=== PATIENT | male | born 1930 | race African-American/Black ===

== ENCOUNTER 2016-11-16 13:42 | Observation (INO) | payer MEDICARE, OTHER ==
[~2016-11-16] VITALS: Ht 190.5 cm; Wt 84.0 kg
[2016-11-16] VITALS (12 sets, daily range): BP systolic 144–239; BP diastolic 73–109; PULSE 64–80; RESP 16–20; TEMP 97.8–97.9; O2SAT 98–100
--- NOTE | 2016-11-16 13:58 | PD ---
Physical Exam Narrative Pt is an 86 year old male presenting to the Ed with CC of feeling shaky, dizzy, felt as if he was going to pass out. No hx of hypertension but BP markedly elevated this morning at PCP and was sent to ED for evaluation. He felt as if his hands and feet were numb. No CP or SOB. BP reassessed at 186/90. Protocol initiated. Nephew with patient. Data Data Last Documented VS Vital Signs Date Time Temp Pulse Resp B/P Pulse Ox O2 Delivery O2 Flow Rate FiO2 11/16/16 13:50 16 186/90 11/16/16 13:44 97.8 64 99 Room Air MDM Supervised Visit with PETER: Yes Scripts No Active Prescriptions or Reported Meds Lakesha Westbrook Nov 16, 2016 13:58
[2016-11-16 14:23] LABS: AUTOMATED NEUTROPHIL # 5.9 TH/MM3 (1.8-7.7); BASOPHIL % 0.4 % (0.0-2.0); EOSINOPHIL # 0.1 TH/MM3 (0-0.4); EOSINOPHIL % 0.8 % (0.0-4.0); HEMATOCRIT 43.5 % (39.0-51.0); HEMO FLAGS DIFF FINAL; LYMPHOCYTE # 1.6 TH/MM3 (1.0-4.8); MEAN CELL VOLUME 85.1 FL (80.0-100.0); MEAN CORPUSCULAR HEMOGLOBIN 27.2 PG (27.0-34.0); MEAN CORPUSCULAR HGB CONC 31.9 % (32.0-36.0); MONO % 5.6 % (0.0-8.0); NEUT % 73.2 % (16.0-70.0); PLATELET COUNT 183 TH/MM3 (150-450); RED BLOOD COUNT 5.11 MIL/MM3 (4.50-5.90); RED CELL DISTRIBUTION WIDTH 12.7 % (11.6-17.2); WHITE BLOOD COUNT 8.1 TH/MM3 (4.0-11.0)
[2016-11-16 14:34] LABS: APTT (PATIENT) 28.1 SEC (24.3-30.1); PROTHROMBIN TIME - PATIENT 10.7 SEC (9.8-11.6)
[2016-11-16 14:41] LABS: ANION GAP 4 MEQ/L (5-15); BICARBONATE 27.9 MEQ/L (21.0-32.0); BLOOD UREA NITROGEN 16 MG/DL (7-18); CHLORIDE 106 MEQ/L (98-107); GLOMERULAR FILTRATION RATE 77 ML/MIN (>89); MAGNESIUM 2.1 MG/DL (1.5-2.5); SODIUM (NA) 138 MEQ/L (136-145)
--- NOTE | 2016-11-16 14:46 | RADRPT ---
EXAM DATE/TIME: 11/16/2016 14:32 [facility] COMPARISON: No previous studies available for comparison. INDICATIONS : Miroslava blood pressure. Patient was sent to the emergency room from his primary doctor. MEDICAL HISTORY : Hypertension. SURGICAL HISTORY : None. ENCOUNTER: Initial ACUITY: 1 day PAIN SCORE: 0/10 LOCATION: Bilateral chest FINDINGS: PA and lateral views of the chest demonstrate the lungs to be symmetrically aerated without evidence of mass, infiltrate or effusion. The cardiomediastinal contours are unremarkable. Osseous structure s are intact. CONCLUSION: No acute disease. Jc Webster MD FACR on November 16, 2016 at 14:44 Board Certified Radiologist. This report was verified electronically.
[2016-11-16 15:04] LABS: CREATINE KINASE 90 U/L (39-308)
[2016-11-16] MEDS ORDERED: hydrALAZINE HCL 20 MG/ML VIAL IV PUSH ONE (15:15)
--- NOTE | 2016-11-16 15:49 | RADRPT ---
EXAM DATE/TIME: 11/16/2016 15:11 [facility] COMPARISON: No previous studies available for comparison. INDICATIONS : Right sided numbness , slurred speech x 3 hours RADIATION DOSE: 45.91 CTDIvol (mGy) MEDICAL HISTORY : Diabetes mellitus type 1. Cardiovascular disease Hypertension. SURGICAL HISTORY : None. ENCOUNTER: Initial ACUITY: 1 day PAIN SCALE: 2/10 LOCATION: Bilateral cranial TECHNIQUE: Multiple contiguous axial images were obtained of the head. Using automated exposure control and adj ustment of the mA and/or kV according to patient size, radiation dose was kept as low as reasonably a chievable to obtain optimal diagnostic quality images. FINDINGS: CEREBRUM: The ventricles are normal for age. Left lateral ventricle slightly larger than the right; there is a lso a small lacunar infarct in the region of the body of the caudate on the left. No evidence of mid line shift, mass lesion, hemorrhage or acute infarction. No extra-axial fluid collections are seen. POSTERIOR FOSSA: The cerebellum and brainstem are intact. The 4th ventricle is midline. The cerebellopontine angle i s unremarkable. EXTRACRANIAL: The visualized portion of the orbits is intact. SKULL: The calvaria is intact. No evidence of skull fracture. CONCLUSION: 1. No evidence of acute infarction by CT. 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 2. Given the acute symptoms and lack of CT findings, may consider performing noncontrast MRI to inclu de diffusion-weighted images. Mandeep Falcon MD on November 16, 2016 at 15:45 Board Certified Radiologist. This report was verified electronically.
--- NOTE | 2016-11-16 16:19 | PD ---
HPI Chief Complaint: Hypertension Time Seen by Provider: 15:05 Travel History International Travel<30 days: No Contact w/Intl Traveler<30days: No Traveled to known affect area: No History of Present Illness HPI 86yo M with PMH of HTN not on any medication presents to the ED with c/o not feeling well today. Pt feels lightheaded and went to PMD and found to have elevated blood pressure. Pt was sent to the ED for further evaluation. Pt was initially seen by midlevel provider in triage and had the work up started. Pt returned from xray and nephew stated that he had slurred speech as well as numbness in right arm and leg. Last normal was at 2:45pm. Pt was then transferred to a medical bed and when I saw him, his numbness in his right arm and leg was resolving. Speech has also improved. Pt did have a left facial droop and left facial numbness at the time I saw him. Denies any fever, headache, visual changes, chest pain, sob, vomiting, abdominal pain. Pt is not on any medications and does not see doctor often. PFSH Past Medical History Medical History: Denies Significant Hx Diabetes: No ?: Not Past Surgical History Surgical History: No Previous Surgery Social History Alcohol Use: No Tobacco Use: No Substance Use: No Allergies-Medications (Allergen,Severity, Reaction): Coded Allergies: No Known Allergies (Unverified , 11/03/13) Reported Meds & Prescriptions Reported Meds & Active Scripts Active No Active Prescriptions or Reported Medications Review of Systems Except as stated in HPI: all other systems reviewed are Neg Physical Exam Narrative GENERAL: 86yo M not in distress. SKIN: Focused skin assessment warm/dry. HEAD: Atraumatic. Normocephalic. EYES: Pupils equal and round. EOMI. No scleral icterus. No injection or drainage. ENT: No nasal bleeding or discharge. Mucous membranes pink and moist. NECK: Trachea midline. No JVD. CARDIOVASCULAR: Regular rate and rhythm. No murmur appreciated. RESPIRATORY: No accessory muscle use. Clear to auscultation. Breath sounds equal bilaterally. GASTROINTESTINAL: Abdomen soft, non-tender, nondistended. MUSCULOSKELETAL: No obvious deformities. No clubbing. No cyanosis. No edema. NEUROLOGICAL: Awake and alert. Decreased sensation left face V1-V3. Slight left facial droop. NIH 2. PSYCHIATRIC: Appropriate mood and affect; insight and judgment normal. Data Data Last Documented VS Vital Signs Date Time Temp Pulse Resp B/P Pulse Ox O2 Delivery O2 Flow Rate FiO2 11/16/16 16:20 69 18 187/73 Room Air 11/16/16 15:45 100 11/16/16 13:44 97.8 Orders Electrocardiogram (11/16/16 13:58) Basic Metabolic Panel (Bmp) (11/16/16 13:58) Ckmb (Isoenzyme) Profile (11/16/16 13:58) Complete Blood Count With Diff (11/16/16 13:58) Magnesium (Mg) (11/16/16 13:58) Prothrombin Time / Inr (Pt) (11/16/16 13:58) Act Partial Throm Time (Ptt) (11/16/16 13:58) Troponin I (11/16/16 13:58) Chest, Pa & Lat (11/16/16 13:58) Ct Brain W/O Iv Contrast(Rout) (11/16/16 ) Hydralazine Inj (Apresoline Inj) (11/16/16 15:15) Admit Order (Ed Use Only) (11/16/16 16:25) Vitamin B12 (11/16/16 14:05) Folate, Serum (11/16/16 14:05) Free Thyroxine (T4) (11/16/16 14:05) Thyroid Stimulating Hormone (11/16/16 14:05) Labs Laboratory Tests Test 11/16/16 14:05 White Blood Count 8.1 TH/MM3 Red Blood Count 5.11 MIL/MM3 Hemoglobin 13.9 GM/DL Hematocrit 43.5 % Mean Corpuscular Volume 85.1 FL Mean Corpuscular Hemoglobin 27.2 PG Mean Corpuscular Hemoglobin 31.9 % Concent Red Cell Distribution Width 12.7 % Platelet Count 183 TH/MM3 Mean Platelet Volume 8.1 FL Neutrophils (%) (Auto) 73.2 % Lymphocytes (%) (Auto) 20.0 % Monocytes (%) (Auto) 5.6 % Eosinophils (%) (Auto) 0.8 % Basophils (%) (Auto) 0.4 % Neutrophils # (Auto) 5.9 TH/MM3 Lymphocytes # (Auto) 1.6 TH/MM3 Monocytes # (Auto) 0.5 TH/MM3 Eosinophils # (Auto) 0.1 TH/MM3 Basophils # (Auto) 0.0 TH/MM3 CBC Comment DIFF FINAL Differential Comment Prothrombin Time 10.7 SEC Prothromb Time International 1.0 RATIO Ratio Activated Partial 28.1 SEC Thromboplast Time Sodium Level 138 MEQ/L Potassium Level 4.0 MEQ/L Chloride Level 106 MEQ/L Carbon Dioxide Level 27.9 MEQ/L Anion Gap 4 MEQ/L Blood Urea Nitrogen 16 MG/DL Creatinine 1.10 MG/DL Estimat Glomerular Filtration 77 ML/MIN Rate Random Glucose 103 MG/DL Calcium Level 9.1 MG/DL Magnesium Level 2.1 MG/DL Total Creatine Kinase 90 U/L Troponin I LESS THAN 0.02 NG/ML Vitamin B12 Level 360 PG/ML Folate 9.7 NG/ML Free Thyroxine 1.31 NG/DL Thyroid Stimulating Hormone 2.300 uIU/ML [facility] Medical Decision Making Medical Screen Exam Complete: Yes Emergency Medical Condition: Yes Interpretation(s) EKG: NSR 74bpm. Normal axis. No ST segment elevation or depression. Laboratory Tests Test 11/16/16 14:05 White Blood Count 8.1 TH/MM3 (4.0-11.0) Red Blood Count 5.11 MIL/MM3 (4.50-5.90) Hemoglobin 13.9 GM/DL (13.0-17.0) Hematocrit 43.5 % (39.0-51.0) Mean Corpuscular Volume 85.1 FL (80.0-100.0) Mean Corpuscular Hemoglobin 27.2 PG (27.0-34.0) Mean Corpuscular Hemoglobin 31.9 % Concent (32.0-36.0) Red Cell Distribution Width 12.7 % (11.6-17.2) Platelet Count 183 TH/MM3 (150-450) Mean Platelet Volume 8.1 FL (7.0-11.0) Neutrophils (%) (Auto) 73.2 % (16.0-70.0) Lymphocytes (%) (Auto) 20.0 % (9.0-44.0) Monocytes (%) (Auto) 5.6 % (0.0-8.0) Eosinophils (%) (Auto) 0.8 % (0.0-4.0) Basophils (%) (Auto) 0.4 % (0.0-2.0) Neutrophils # (Auto) 5.9 TH/MM3 (1.8-7.7) Lymphocytes # (Auto) 1.6 TH/MM3 (1.0-4.8) Monocytes # (Auto) 0.5 TH/MM3 (0-0.9) Eosinophils # (Auto) 0.1 TH/MM3 (0-0.4) Basophils # (Auto) 0.0 TH/MM3 (0-0.2) CBC Comment DIFF FINAL Differential Comment Prothrombin Time 10.7 SEC (9.8-11.6) Prothromb Time International 1.0 RATIO Ratio Activated Partial 28.1 SEC Thromboplast Time (24.3-30.1) Sodium Level 138 MEQ/L (136-145) Potassium Level 4.0 MEQ/L (3.5-5.1) Chloride Level 106 MEQ/L (98-107) Carbon Dioxide Level 27.9 MEQ/L (21.0-32.0) Anion Gap 4 MEQ/L (5-15) Blood Urea Nitrogen 16 MG/DL (7-18) Creatinine 1.10 MG/DL (0.60-1.30) Estimat Glomerular Filtration 77 ML/MIN (>89) Rate Random Glucose 103 MG/DL (74-106) Calcium Level 9.1 MG/DL (8.5-10.1) Magnesium Level 2.1 MG/DL (1.5-2.5) Total Creatine Kinase 90 U/L (39-308) Troponin I LESS THAN 0.02 NG/ML (0.02-0.05) Last Impressions Chest X-Ray 11/16/16 1358 Signed Impressions: Service Date/Time: Wednesday, November 16, 2016 14:32 - CONCLUSION: No acute disease. Jc Webster MD FACR Head CT 11/16/16 0000 Signed Impressions: Service Date/Time: Wednesday, November 16, 2016 15:11 - CONCLUSION: 1. No evidence of acute infarction by CT. 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 2. Given the acute symptoms and lack of CT findings, may consider performing noncontrast MRI to include diffusion-weighted images. Mandeep Falcon MD Differential Diagnosis CVA vs. hypertensive emergency vs. ICH Narrative Course 86yo M with elevated blood pressure with new onset slurred speech and numbness. Symptoms are resolving on their own. Labs reviewed, no leukocytosis. Troponin negative. CXR negative. CT brain showed no evidence of acute infarct. 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 Pt given hydralazine 10mg IV and BP has improved to 187/73. Pt reevaluated at bedside and all symptoms has resolved. Given pt's acute symptoms, will admit for TIA although hypertensive emergency may be in the differential. Pt took aspirin today. Discussed with Dr. Guallpa and accepted for observation for TIA. Diagnosis Primary Impression: TIA (transient ischemic attack) Qualified Code: G45.9 - Transient cerebral ischemia, unspecified type Admitting Information Admitting Physician Requests: Observation Scripts No Active Prescriptions or Reported Meds Nadege Sales DO Nov 16, 2016 16:19
[2016-11-16] MEDS ORDERED: LABETALOL HCL 100 MG/20 ML VIAL IV PRN (16:30)
[2016-11-16] MEDS ORDERED: SODIUM CHLORIDE 0.9% FLUSH 10 ML FLUSH IV FLUSH PRN (16:30)
[2016-11-16] MEDS ORDERED: GLUCAGON 1 MG/ML VIAL IM/SQ PRN (16:30)
[2016-11-16] MEDS ORDERED: DEXTROSE 50% IN WATER 50 ML VIAL(D50) IV PUSH PRN (16:30)
--- NOTE | 2016-11-16 16:45 | HHI.HP ---
[facility] Service [facility] ([place], [place])ists Primary Care Physician Yariel Brower MD Admission Diagnosis TIA Diagnoses: Chief Complaint: Right arm and leg tingling sensation and numbness, difficulty to walk. Travel History International Travel<30 Days: No Contact w/Intl Traveler <30 Da: No Traveled to Known Affected Are: No History of Present Illness This is a pleasant 86 y/o Male with Hypertension, non on any medicine, who complaint today of not feeling well, he felt lightheaded found in Emergency room with Accelerated Hypertension, Pt was initially seen by midlevel provider in triage and had the work up started. Pt returned from xray and nephew stated that he had slurred speech as well as numbness in right arm and leg. Last normal was at 2:45pm. seen by Emergency medicine physician with numbness in his right arm and leg that was resolving, Speech also was improving, Pt did have a left facial droop and left facial numbness, Denies any fever, headache, visual changes, chest pain, sob, vomiting, abdominal pain. Pt is not on any medications and does not see doctor often. patient seen in emergency room, in the presence of fisheries technician doing his Carotid ultrasound he states he had Right arm and leg tingling sensation, numbness and slurred speech at this moment totally asymptomatic, full Stroke workup will be performed included Neurology specialist consult. Past Family Social History Past Medical History Hypertension not taking any medicine Past Surgical History No previous surgical history Reported Medications Reported Meds & Active Scripts Active No Active Prescriptions or Reported Medications Allergies: Coded Allergies: No Known Allergies (Unverified , 11/03/13) Active Ordered Medications Current Medications Medications (Trade) Dose Ordered Sig/Zahra Route Start Time Stop Time Status Last Admin (NS Flush) 2 ml BID IV FLUSH 11/16/16 21:00 UNV Sodium Chloride 2 ml 2 ml UNSCH PRN IV FLUSH 11/16/16 16:30 UNV (NS 1000 ml Inj) 1,000 ml @ 70 mls/hr [id number] IV 11/16/16 16:26 UNV (Trandate Inj) 10 mg Q2H PRN IV 11/16/16 16:30 UNV (Aspirin) 325 mg DAILY PO 11/17/16 09:00 (D50w (Vial) Inj) 25 ml UNSCH PRN IV PUSH 11/16/16 16:30 (Glucagon Inj) 1 mg UNSCH PRN IM/SQ 11/16/16 16:30 (Lovenox Inj) 40 mg Q24H SQ 11/16/16 17:00 Family History asked and states his father when he was eight months old and his mother lived until 87 years old Social History Lives alone and Denies any Toxic habit. Physical Exam Vital Signs Vital Signs Date Time Temp Pulse Resp B/P Pulse Ox O2 Delivery O2 Flow Rate FiO2 11/16/16 16:20 69 18 187/73 Room Air 11/16/16 15:45 80 18 188/90 100 Room Air 11/16/16 15:30 65 20 187/86 99 Room Air 11/16/16 14:59 77 20 239/107 99 Room Air 11/16/16 14:56 99 Room Air 11/16/16 13:50 16 186/90 11/16/16 13:44 97.8 64 20 231/109 99 Room Air Physical Exam GENERAL: Not in distress. SKIN: Focused skin assessment warm/dry. HEAD: Atraumatic. Normocephalic. EYES: Pupils equal and round. EOMI. No scleral icterus. No injection or drainage. ENT: No nasal bleeding or discharge. Mucous membranes pink and moist. NECK: Trachea midline. No JVD. CARDIOVASCULAR: Regular rate and rhythm. No murmur appreciated. RESPIRATORY: No accessory muscle use. Clear to auscultation. Breath sounds equal bilaterally. GASTROINTESTINAL: Abdomen soft, non-tender, nondistended. MUSCULOSKELETAL: No obvious deformities. No clubbing. No cyanosis. No edema. NEUROLOGICAL: Awake and alert. No focal deficits. PSYCHIATRIC: Appropriate mood and affect; insight and judgment normal. Laboratory Laboratory Tests Test 11/16/16 14:05 White Blood Count 8.1 Red Blood Count 5.11 Hemoglobin 13.9 Hematocrit 43.5 Mean Corpuscular Volume 85.1 Mean Corpuscular Hemoglobin 27.2 Mean Corpuscular Hemoglobin 31.9 Concent Red Cell Distribution Width 12.7 Platelet Count 183 Mean Platelet Volume 8.1 Neutrophils (%) (Auto) 73.2 Lymphocytes (%) (Auto) 20.0 Monocytes (%) (Auto) 5.6 Eosinophils (%) (Auto) 0.8 Basophils (%) (Auto) 0.4 Neutrophils # (Auto) 5.9 Lymphocytes # (Auto) 1.6 Monocytes # (Auto) 0.5 Eosinophils # (Auto) 0.1 Basophils # (Auto) 0.0 CBC Comment DIFF FINAL Differential Comment Prothrombin Time 10.7 Prothromb Time International 1.0 Ratio Activated Partial 28.1 Thromboplast Time Sodium Level 138 Potassium Level 4.0 Chloride Level 106 Carbon Dioxide Level 27.9 Anion Gap 4 Blood Urea Nitrogen 16 Creatinine 1.10 Estimat Glomerular Filtration 77 Rate Random Glucose 103 Calcium Level 9.1 Magnesium Level 2.1 Total Creatine Kinase 90 Troponin I LESS THAN 0.02 Result Diagram: 11/16/16 1405 11/16/16 1405 Imaging Last Impressions Chest X-Ray 11/16/16 1358 Signed Impressions: Service Date/Time: Wednesday, November 16, 2016 14:32 - CONCLUSION: No acute disease. Jc Webster MD FACR Head CT 11/16/16 0000 Signed Impressions: Service Date/Time: Wednesday, November 16, 2016 15:11 - CONCLUSION: 1. No evidence of acute infarction by CT. 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 2. Given the acute symptoms and lack of CT findings, may consider performing noncontrast MRI to include diffusion-weighted images. Mandeep Falcon MD Assessment and Plan Assessment and Plan 1. Acute Ischemic Stroke versus TIA, started on Oxygen as needed, Aspirin 325 mg Cardiac monitoring, Cardiac enzymes, Neurology specialist consult, CT probable old infarct MRI brain, MRA brain, Carotid ultrasound, Echocardiogram, complete laboratory TSH, Free T4, Lipid Profile, Hemoglobin A1C, PT, OT and Speech therapy at this time NPO continue IV fluids, 2. Accelerated Hypertension, Permissive Hypertension Discussed with Emergency medicine Specialist doctor Nadege Sales DVT prophylaxis Lovenox. Code Status Full code. Discussed Condition With Patient and ER specialist. Physician Certification 2 Midnight Certification Type: Admission for Inpatient Services Order for Inpatient Services The services are ordered in accordance with Medicare regulations or non- Medicare payer requirements, as applicable. In the case of services not specified as inpatient-only, they are appropriately provided as inpatient services in accordance with the 2-midnight benchmark. Estimated LOS (days): 3 days is the estimated time the patient will need to remain in the hospital, assuming treatment plan goals are met and no additional complications. Post-Hospital Plan: Home Galen Rich MD Nov 16, 2016 16:45
[2016-11-16] MEDS ORDERED: ENALAPRILAT 1.25 MG/ML VIAL IV PRN (17:00)
[2016-11-16] MEDS ORDERED: ENOXAPARIN SODIUM 40 MG/0.4 ML SYRINGE SQ SCH (17:00)
--- NOTE | 2016-11-16 17:48 | RADRPT ---
EXAM DATE/TIME: 11/16/2016 16:47 [facility] COMPARISON: No previous studies available for comparison. INDICATIONS : Cerebrovascular Accident. Left facial droop and numbness. MEDICAL HISTORY : Hypertension. Left facial droop and numbness. CVA. SURGICAL HISTORY : None. ENCOUNTER: Initial ACUITY: 1 day PAIN SCORE: 0/10 LOCATION: Bilateral neck PEAK SYSTOLIC VELOCITIES (cm/sec): ICA/CCA RATIO: Right: 0.8 Left: 0.6 ICA: Right: 82 Left: 79 CCA: Right: 102 Left: 140 ECA: Right: 110 Left: 138 VERTEBRAL: Right: 59 antegrade Left: 72 antegrade Elevated flow velocities and ICA/CCA ratios have been found to correlate with increased degrees of vessel stenosis, calculated as percentage of diameter relative to a normal segment of distal ICA/CCA FINDINGS: RIGHT CAROTID: No significant stenosis is visualized. The waveforms are within normal limits. LEFT CAROTID: No significant stenosis is visualized. The waveforms are within normal limits. VERTEBRAL ARTERIES: Antegrade flow is seen in both vertebral arteries. CONCLUSION: 1. Normal hemodynamic profile on the right. 2. Elevated peak systolic velocity in the common carotid artery without widening of velocity spectrum or elevated ICA velocity on the left side. This is suggestive to 50% stenosis. Mandeep Falcon MD on November 16, 2016 at 17:44 Board Certified Radiologist. This report was verified electronically.
[2016-11-16] MEDS ORDERED: ASPIRIN 325 MG TAB PO ONE (18:00)
--- NOTE | 2016-11-16 18:44 | RADRPT ---
EXAM DATE/TIME: 11/16/2016 18:01 [facility] COMPARISON: MRI BRAIN W/O CONTRAST, November 16, 2016, 18:01. INDICATIONS : Right sided weakness. CVA. MEDICAL HISTORY : Hypertension. SURGICAL HISTORY : None. ENCOUNTER: Subsequent ACUITY: 1 day PAIN SCORE: 0/10 LOCATION: HEAD. Please note a normal MRA of the brain does not entirely exclude the possibility of a small aneurysm, nor the possibility of distal intracranial vessel disease. TECHNIQUE: 3D time of flight MRA was performed. Source images, multiplanar STS MIP, and 3D volume MIP reconstru ctions were reviewed. FINDINGS: There is excellent visualization of the major intracranial arteries out to the second-order branch ve ssels. Atherosclerotic narrowing is seen involving the proximal M2 branches on the right. The remaini ng vessels are patent. There is no evidence for aneurysm or vascular malformation. CONCLUSION: Atherosclerotic narrowing of the proximal M2 branches on the right. Otherwise, no acute abnormality. Mandeep Toussaint Jr., MD on November 16, 2016 at 18:38 Board Certified Radiologist. This report was verified electronically.
--- NOTE | 2016-11-16 18:46 | RADRPT ---
EXAM DATE/TIME: 11/16/2016 18:01 [facility] COMPARISON: CT BRAIN W/O CONTRAST, November 16, 2016, 15:11. INDICATIONS : Right sided weakness. CVA. MEDICAL HISTORY : Hypertension. SURGICAL HISTORY : None. ENCOUNTER: Subsequent ACUITY: 1 day PAIN SCORE: 0/10 LOCATION: head. TECHNIQUE: Multiplanar, multisequence MRI of the brain was performed without contrast. FINDINGS: CEREBRUM: The ventricles are normal for age. No evidence of midline shift, mass lesion, hemorrhage or acute in farction. No extraaxial fluid collections are seen. The pituitary gland and suprasellar cistern are normal in configuration. WHITE MATTER: Scattered foci of high T2 signal abnormality involving the periventricular white matter of both cereb ral hemispheres. POSTERIOR FOSSA: The cerebellum and brainstem are intact. The 4th ventricle is midline. The cerebellopontine angle is unremarkable. The cerebellar tonsils are normal in position. DIFFUSION IMAGING: No focal areas of restricted diffusion are seen. No evidence of acute infarction. EXTRACRANIAL: The visualized portions of the orbits and paranasal sinuses are unremarkable. Note is made of complet e opacification of the left maxillary sinus. CONCLUSION: 1. No acute intracranial abnormality. 2. Chronic small vessel ischemic change. 3. Left maxillary sinus disease. Mandeep Toussaint Jr., MD on November 16, 2016 at 18:42 Board Certified Radiologist. This report was verified electronically.
[2016-11-16 19:14] LABS: FREE T4 1.31 NG/DL (0.76-1.46)
[2016-11-16] MEDS: SODIUM CHLOR 0.9% 1000 ML INJ 1,000 ML IV SCH (19:37)
[2016-11-16] MEDS: SODIUM CHLORIDE 0.9% FLUSH 10 ML FLUSH IV FLUSH SCH (20:55)
[2016-11-16] MEDS: INSULIN ASPART SUPPLEMENTAL SCALE SQ SCH (21:00)
--- NOTE | 2016-11-16 21:03 | EC ---
Study Study Date:11/16/2016 STUDY CONCLUSIONS SUMMARY LEFT VENTRICLE: The cavity size was normal. Wall thickness was normal. Systolic function was normal. The estimated ejection fraction was 65%. Wall motion was normal; there were no regional wall motion abnormalities. If LV function is below 40, please consider prescribing an ACEI or ARB or document rationale for non-use. PROCEDURE DATA STUDY STATUS: Elective. Procedure: Transthoracic echocardiography. Image quality was good. Scanning was performed from the parasternal, apical, and subcostal acoustic windows. Study completion: The patient tolerated the procedure well. Transthoracic echocardiography. M-mode, complete 2D, complete spectral Doppler, and color Doppler. Height: Height: 75in. Weight: Weight: 184.6lb. Body mass index: BMI: 23.1kg/m^2. Body surface area: BSA: 2.12m^2. Patient status: Inpatient. CARDIAC ANATOMY LEFT VENTRICLE: The cavity size was normal. Wall thickness was normal. Systolic function was normal. The estimated ejection fraction was 65%. Wall motion was normal; there were no regional wall motion abnormalities. AORTIC VALVE: Trileaflet; normal thickness leaflets. Doppler: Transvalvular velocity was within the normal range. There was no stenosis. No regurgitation. Valve area: 2.29cm^2 (Vmax). Indexed valve area: 1.08cm^2/m^2 (Vmax). AORTA: Aortic root: The aortic root was normal in size. MITRAL VALVE: Structurally normal valve. Doppler: Transvalvular velocity was within the normal range. There was no evidence for stenosis. No regurgitation. Mean gradient: 2mm Hg (D). Peak gradient: 4mm Hg (D). LEFT ATRIUM: The atrium was normal in size. RIGHT VENTRICLE: The cavity size was normal. Wall thickness was normal. PULMONIC VALVE: Doppler: Transvalvular velocity was within the normal range. There was no evidence for stenosis. No regurgitation. TRICUSPID VALVE: Structurally normal valve. Doppler: Transvalvular velocity was within the normal range. No regurgitation. PULMONARY ARTERY: The main pulmonary artery was normal-sized. Systolic pressure was within the normal range. RIGHT ATRIUM: The atrium was normal in size. PERICARDIUM: There was no pericardial effusion. SYSTEMIC VEINS: Inferior vena cava: The vessel was normal in size. Patient weight: 184.6lb _Ejection fraction:_ 65-75% _Fractional shortening:_ 32% up to 5Kg 5-11.5Kg 11.6-22.9Kg 23-45Kg 45-57Kg Aortic Root 7-13 <17 13-22 17-27 17-27 LA diam 6-13 <23 24-38 33-47 37-40 RVID 10-17 7-15 7-15 7-18 8-17 LVIDd 12-22 <32 24-38 33-47 37-40 LVPW 2-4 3-6 5-7 6-8 7-8 IVS 2-4 3-6 5-7 6-8 7-8 BASIC MEASUREMENTS ADULT NORMAL Aortic valve Leaflet separation 19 mm 15-26 Left atrium Anterior-posterior dimension 30 mm Anterior-posterior dimension index 1.42 cm/m^2 <2.2 Right ventricle RV internal dimension, ED, PLAX 27.6 mm 19-38 BASIC MEASUREMENTS ADULT NORMAL Left ventricle LV internal dimension, ED 47.6 mm 37-56 LV internal dimension, ES 24.3 mm Fractional shortening *49 % 29-45 LV posterior wall, ED 9.31 mm 6-11 Septal/posterior wall ratio, ED 1 Relative wall thickness, ED 0.39 <0.45 Volume, ED, Teichholz 105 ml Volume, ES, Teichholz 20.8 ml Ejection fraction, Teichholz 80.2 % 64-83 Stroke volume, Teichholz 84.2 ml Volume index, ED, Teichholz 50 ml/m^2 Volume index, ES, Teichholz 10 ml/m^2 Stroke index, Teichholz 39.7 ml/m^2 Wall mass 152.5 g Wall mass index 71.9 g/m^2 Mass/height 0.8 g/cm Ventricular septum Septal thickness, ED 9.31 mm Aortic valve Leaflet separation 19 mm 15-26 Aorta Root diameter, ED 25 mm 20-37 DOPPLER MEASUREMENTS ADULT NORMAL Aortic valve Peak velocity, S 140 cm/s VTI, S 31.7 cm Valve area, Vmax 2.29 cm^2 Valve area index, Vmax 1.08 cm^2/m^2 Mitral valve Mean velocity, D 62.1 cm/s Mean gradient, D 2 mm Hg Peak gradient, D 4 mm Hg Pulmonic valve Peak velocity, S 119 cm/s LEGEND: Mean values are shown as u=mean value. Asterisk (*) cabrales values outside specified normal range. Prepared and signed by Malina Byrne [id number]
[2016-11-17 00:54] VITALS: BP 172/76; PULSE 72; RESP 16
[2016-11-17 04:51] VITALS: BP 160/76; PULSE 61; RESP 18; TEMP 97.8; O2SAT 97
[2016-11-17 05:22] LABS: HDL CHOLESTEROL 44.8 MG/DL (40.0-60.0)
[2016-11-17] MEDS: INSULIN ASPART SUPPLEMENTAL SCALE SQ SCH ×2 (06:10→11:00)
[2016-11-17 07:51] VITALS: BP 134/95; PULSE 68; RESP 18; TEMP 97.4; O2SAT 98
[2016-11-17 08:04] VITALS: PULSE 75
[2016-11-17] MEDS: SODIUM CHLOR 0.9% 1000 ML INJ 1,000 ML IV SCH (08:04)
[2016-11-17] MEDS: SODIUM CHLORIDE 0.9% FLUSH 10 ML FLUSH IV FLUSH SCH (08:06)
[2016-11-17] MEDS ORDERED: ASPIRIN 325 MG TAB PO SCH (09:00)
--- NOTE | 2016-11-17 09:51 | MB ---
cc: JUAN BOCANEGRA MD DATE OF CONSULTATION: 11/17/2016 REASON FOR CONSULTATION Possible TIA. HISTORY OF PRESENT ILLNESS Mr. Lynch is a 86-year-old -Al[place] male with history of hypertension. He is not on any medications, who presented to the ED feeling numbness of the whole right side, face, arm and leg with feeling of dizziness and he states it "comes and goes" and it lasted a few hours and then totally resolved. He states that he had a similar condition 2 years ago and this time this is associated with mild slurring of speech as well. He denies headache, double vision, blurred vision, weakness of extremity, fall or disorientation. REVIEW OF SYSTEMS A 12-point review of systems is negative except for what is stated in the HPI. PAST MEDICAL HISTORY Hypertension, not on any medication. PAST SURGICAL HISTORY No previous surgical history. MEDICATIONS Currently on no medications. ALLERGIES No known allergies. FAMILY HISTORY Father when he was 8 months. Mother lived until 87 years old. SOCIAL HISTORY Lives alone, independent. Denies alcohol, illicit drug abuse or cigarette smoking. PHYSICAL EXAMINATION GENERAL: Awake, alert, good historian, pleasant, not in acute distress. HEENT: Atraumatic, normocephalic. Intact vision and intact hearing. NECK: Trachea in the midline. No carotid bruits. CARDIOVASCULAR: Regular rate and rhythm. RESPIRATORY: Clear to auscultation. No wheezes. GASTROINTESTINAL: Soft abdomen, nontender. MUSCULOSKELETAL: No obvious deformity. No clubbing, no cyanosis, no edema. Moves extremities equally. NEUROLOGIC: Awake, alert, oriented to time, person and place. Intact speech. Intact speech content. No dysphasia. Intact memory. Cranial nerves II-XII are grossly intact. Motor system 5/5 bilateral, symmetrical. Sensation to touch and temperature is intact bilateral and symmetrical. Reflexes 1+ bilateral and symmetrical. Plantars are b/l downgoing. [id number], heel-to -hernandez is intact. PSYCHIATRIC: Appropriate mood and affect, insight, judgment. No hallucinations. LABORATORY DATA - White blood cells 8.1, hemoglobin 13.9, MCV 85.1, platelets 183, INR 1, sodium 138, potassium 4, chloride 106, anion gap 4, BUN 16, creatinine 1.1, calcium 9.1, magnesium 2.1, troponin less than 0.02. DIAGNOSTIC IMAGING - Head CT scan without contrast revealed no evidence of acute infarct. 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 - Brain MRI without contrast revealed no acute intracranial abnormality. Chronic white matter small vessel ischemic changes and left maxillary sinus disease. - MRA brain without contrast revealed atherosclerotic narrowing of the proximal M2 branches on the right, otherwise no acute abnormality. - Carotid ultrasound shows normal hemodynamic profile on the right, elevated peak systolic velocity in the common carotid artery without widening of velocity spectrum or elevated ICA velocity on the left side. This is suggestive of up to 50% stenosis. - ECHOCARDIOGRAM The left ventricle cavity size is normal, wall thickness normal, systolic function normal, ejection fraction 65%, wall motion is normal. DIAGNOSTIC IMPRESSION 1. TIA. 2. Hypertension. 3. Head CT scan evidence of remote lacunar infarct in the left caudate. PLAN 1. The patient is stable from neurology standpoint. 2. Neurological examination is nonfocal. 3. Neuro diagnostic imaging is unremarkable for an acute intracranial abnormality. 4. May consider Holter monitoring to rule out paroxysmal atrial fibrillation. 5. Management of hypertension. 6. Aspirin 81 mg daily. 7. DVT prophylaxis with SCDs. 8. Follow-up with outpatient neurology. 9. Please call for any questions. MD DC Simeon/AMANDA /8:24 AM /9:22 AM KYRA
[2016-11-17 11:10] VITALS: BP 149/72; PULSE 66; RESP 18; TEMP 97.9; O2SAT 99
--- NOTE | 2016-11-17 12:22 | EKG ---
Date Performed: 11/16/2016 Time Performed: 15:03:28 PTAGE: 86 years EKG: Sinus rhythm WITH SINUS ARRHYTHMIA NORMAL ECG NO PREVIOUS TRACING DOCTOR: Mehul Yeager Interpretating Date/Time 11/17/2016 12:19:24
--- NOTE | 2016-11-17 12:50 | HHI.PR ---
Subjective Remarks This is a pleasant 86 y/o Male with Hypertension, non on any medicine, who complaint today of not feeling well, he felt lightheaded found in Emergency room with Accelerated Hypertension, Pt was initially seen by midlevel provider in triage and had the work up started. Pt returned from x ray and nephew stated that he had slurred speech as well as numbness in right arm and leg. Last normal was at 2:45pm. seen by Emergency medicine physician with numbness in his right arm and leg that was resolving, Speech also was improving, Pt did have a left facial droop and left facial numbness, Denies any fever, headache, visual changes, chest pain, sob, vomiting, abdominal pain. Pt is not on any medications and does not see doctor often. patient seen in emergency room, in the presence of soil conservation technician doing his Carotid ultrasound he states he had Right arm and leg tingling sensation, numbness and slurred speech at this moment totally asymptomatic, full Stroke workup will be performed included Neurology specialist consult. 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 with Diagnosis of TIA recommended for discharge from Neurology standpoint, may consider PAF and may get Holter monitoring as outpatient, Hypertension management, Aspirin 81 mg daily, follow as outpatient with Neurology. by Doctor Diego Velásquez Objective Vital Signs Date Time Temp Pulse Resp B/P Pulse Ox O2 Delivery O2 Flow Rate FiO2 11/17/16 11:10 97.9 66 18 149/72 99 11/17/16 08:04 75 11/17/16 07:51 97.4 68 18 134/95 98 Manual Cuff/Palpation 11/17/16 04:51 97.8 61 18 160/76 97 11/17/16 00:54 72 16 172/76 11/16/16 22:15 182/87 11/16/16 21:57 70 11/16/16 21:38 97.9 74 18 198/95 99 11/16/16 20:53 21 11/16/16 19:37 73 18 144/74 98 Room Air 11/16/16 17:45 73 18 171/83 99 Room Air 11/16/16 16:45 69 18 164/81 100 Room Air 11/16/16 16:20 69 18 187/73 Room Air 11/16/16 15:45 80 18 188/90 100 Room Air 11/16/16 15:30 65 20 187/86 99 Room Air 11/16/16 14:59 77 20 239/107 99 Room Air 11/16/16 14:56 99 Room Air 11/16/16 13:50 16 186/90 11/16/16 13:44 97.8 64 20 231/109 99 Room Air I/O 11/16/16 11/16/16 11/16/16 11/17/16 11/17/16 11/17/16 07:00 15:00 23:00 07:00 15:00 23:00 Output Total 200 ml 600 ml Balance -200 ml -600 ml Output Urine Total 200 ml 600 ml # Voids 1 Result Diagram: 11/16/16 1405 11/16/16 1405 Imaging Last Impressions Chest X-Ray 11/16/16 1358 Signed Impressions: Service Date/Time: Wednesday, November 16, 2016 14:32 - CONCLUSION: No acute disease. Jc Webster MD FACR Head Magnetic Resonance Angiography 11/16/16 0000 Signed Impressions: Service Date/Time: Wednesday, November 16, 2016 18:01 - CONCLUSION: Atherosclerotic narrowing of the proximal M2 branches on the right. Otherwise, no acute abnormality. Mandeep Toussaint Jr., MD Head CT 11/16/16 0000 Signed Impressions: Service Date/Time: Wednesday, November 16, 2016 15:11 - CONCLUSION: 1. No evidence of acute infarction by CT. 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 2. Given the acute symptoms and lack of CT findings, may consider performing noncontrast MRI to include diffusion-weighted images. Mandeep Falcon MD Carotid Artery Ultrasound 11/16/16 0000 Signed Impressions: Service Date/Time: Wednesday, November 16, 2016 16:47 - CONCLUSION: 1. Normal hemodynamic profile on the right. 2. Elevated peak systolic velocity in the common carotid artery without widening of velocity spectrum or elevated ICA velocity on the left side. This is suggestive to 50%% stenosis. Mandeep Falcon MD Brain MRI 11/16/16 0000 Signed Impressions: Service Date/Time: Wednesday, November 16, 2016 18:01 - CONCLUSION: 1. No acute intracranial abnormality. 2. Chronic small vessel ischemic change. 3. Left maxillary sinus disease. Mandeep Toussaint Jr., MD Procedures No procedures performed. Other Results Laboratory Tests Test 11/16/16 11/17/16 14:05 04:26 White Blood Count 8.1 TH/MM3 Red Blood Count 5.11 MIL/MM3 Hemoglobin 13.9 GM/DL Hematocrit 43.5 % Mean Corpuscular Volume 85.1 FL Mean Corpuscular Hemoglobin 27.2 PG Mean Corpuscular Hemoglobin 31.9 % Concent Red Cell Distribution Width 12.7 % Platelet Count 183 TH/MM3 Mean Platelet Volume 8.1 FL Neutrophils (%) (Auto) 73.2 % Lymphocytes (%) (Auto) 20.0 % Monocytes (%) (Auto) 5.6 % Eosinophils (%) (Auto) 0.8 % Basophils (%) (Auto) 0.4 % Neutrophils # (Auto) 5.9 TH/MM3 Lymphocytes # (Auto) 1.6 TH/MM3 Monocytes # (Auto) 0.5 TH/MM3 Eosinophils # (Auto) 0.1 TH/MM3 Basophils # (Auto) 0.0 TH/MM3 CBC Comment DIFF FINAL Differential Comment Prothrombin Time 10.7 SEC Prothromb Time International 1.0 RATIO Ratio Activated Partial 28.1 SEC Thromboplast Time Sodium Level 138 MEQ/L Potassium Level 4.0 MEQ/L Chloride Level 106 MEQ/L Carbon Dioxide Level 27.9 MEQ/L Anion Gap 4 MEQ/L Blood Urea Nitrogen 16 MG/DL Creatinine 1.10 MG/DL Estimat Glomerular Filtration 77 ML/MIN Rate Random Glucose 103 MG/DL Calcium Level 9.1 MG/DL Magnesium Level 2.1 MG/DL Vitamin B12 Level 360 PG/ML Folate 9.7 NG/ML Free Thyroxine 1.31 NG/DL Thyroid Stimulating Hormone 2.300 uIU/ML 3rd Gen Total Creatine Kinase 110 U/L Troponin I 0.02 NG/ML Triglycerides Level 74 MG/DL Cholesterol Level 193 MG/DL LDL Cholesterol 133 MG/DL HDL Cholesterol 44.8 MG/DL Cholesterol/HDL Ratio 4.30 RATIO Objective Remarks GENERAL: Not in distress. SKIN: Focused skin assessment warm/dry. HEAD: Atraumatic. Normocephalic. EYES: Pupils equal and round. EOMI. No scleral icterus. No injection or drainage. ENT: No nasal bleeding or discharge. Mucous membranes pink and moist. NECK: Trachea midline. No JVD. CARDIOVASCULAR: Regular rate and rhythm. No murmur appreciated. RESPIRATORY: No accessory muscle use. Clear to auscultation. Breath sounds equal bilaterally. GASTROINTESTINAL: Abdomen soft, non-tender, nondistended. MUSCULOSKELETAL: No obvious deformities. No clubbing. No cyanosis. No edema. NEUROLOGICAL: Awake and alert. No focal deficits. PSYCHIATRIC: Appropriate mood and affect; insight and judgment normal. Medications and IVs Current Medications Medications (Trade) Dose Ordered Sig/Zahra Route Start Time Stop Time Status Last Admin (NS Flush) 2 ml BID IV FLUSH 11/16/16 21:00 Sodium Chloride 2 ml 2 ml UNSCH PRN IV FLUSH 11/16/16 16:30 (NS 1000 ml Inj) 1,000 ml @ 70 mls/hr [id number] IV 11/16/16 16:26 11/17/16 08:04 (Aspirin) 325 mg DAILY PO 11/17/16 09:00 11/17/16 08:05 (D50w (Vial) Inj) 25 ml UNSCH PRN IV PUSH 11/16/16 16:30 (Glucagon Inj) 1 mg UNSCH PRN IM/SQ 11/16/16 16:30 (Lovenox Inj) 40 mg Q24H SQ 11/16/16 17:00 11/16/16 19:35 (Vasotec Inj) 1.25 mg Q4H PRN IV 11/16/16 17:00 A/P Assessment and Plan 1. 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 with Diagnosis of TIA recommended for discharge from Neurology standpoint, may consider PAF and may get Holter monitoring as outpatient, Hypertension management, Aspirin 81 mg daily, follow as outpatient with Neurology. by Doctor Diego Velásquez 2. Accelerated Hypertension, Permissive Hypertension, started medicines for Hypertension 3. Hyperlipidemia started on Pravastatin. 4. Non compliant patient discussed with his Son Mr. Beaulieu all questions answered to the best of my abilities the patient basically needs a Primary Care Physician to follow him as outpatient. DVT prophylaxis Lovenox. Code Status Full code. Discussed Condition With Patient, his Niece Miss Magy Martinez and his son Mr Beaulieu Discharge Planning Discharge home with outpatient Physical Therapy. Galen Rich MD Nov 17, 2016 12:50
[2016-11-17] MEDS ORDERED: AMLO5TAB2 PO (13:52)
[2016-11-17] MEDS ORDERED: PRAV20TA2 PO (13:52)
[2016-11-17] MEDS ORDERED: ASPI325T PO (13:52)
--- NOTE | 2016-11-17 13:54 | HHI.DS ---
Discharge Summary Admission Date Nov 16, 2016 at 16:27 Discharge Date: Nov 17, 2016 Admitting Diagnosis TIA (1) TIA (transient ischemic attack) ICD Code: G45.9 Diagnosis: Principal (2) Accelerated hypertension ICD Code: I10 Diagnosis: Principal (3) Hyperlipidemia ICD Code: E78.5 Diagnosis: Principal Procedures No procedures performed. Brief History - From Admission This is a pleasant 86 y/o Male with Hypertension, non on any medicine, who complaint today of not feeling well, he felt lightheaded found in Emergency room with Accelerated Hypertension, Pt was initially seen by midlevel provider in triage and had the work up started. Pt returned from xray and nephew stated that he had slurred speech as well as numbness in right arm and leg. Last normal was at 2:45pm. seen by Emergency medicine physician with numbness in his right arm and leg that was resolving, Speech also was improving, Pt did have a left facial droop and left facial numbness, Denies any fever, headache, visual changes, chest pain, sob, vomiting, abdominal pain. Pt is not on any medications and does not see doctor often. patient seen in emergency room, in the presence of biological lab technician doing his Carotid ultrasound he states he had Right arm and leg tingling sensation, numbness and slurred speech at this moment totally asymptomatic, full Stroke workup will be performed included Neurology specialist consult. CBC/BMP: 11/16/16 1405 11/16/16 1405 Significant Findings Laboratory Tests Test 11/16/16 11/17/16 14:05 04:26 Mean Corpuscular Hemoglobin 31.9 % Concent (32.0-36.0) Neutrophils (%) (Auto) 73.2 % (16.0-70.0) Anion Gap 4 MEQ/L (5-15) Estimat Glomerular Filtration 77 ML/MIN (>89) Rate Troponin I LESS THAN 0.02 NG/ML (0.02-0.05) LDL Cholesterol 133 MG/DL (0-99) Imaging Last Impressions Chest X-Ray 11/16/16 1248 Signed Impressions: Service Date/Time: WedNovember 16, 2016 14:32 - CONCLUSION: No acute disease. Jc Webster MD FACR Head Magnetic Resonance Angiography 11/16/16 0000 Signed Impressions: Service Date/Time: Wednesday, November 16, 2016 18:01 - CONCLUSION: Atherosclerotic narrowing of the proximal M2 branches on the right. Otherwise, no acute abnormality. Mandeep Toussaint Jr., MD Head CT 11/16/16 Signed Impressions: Service Date/Time: Wednesday, November 16, 2016 15:11 - CONCLUSION: 1. No evidence of acute infarction by CT. 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 2. Given the acute symptoms and lack of CT findings, may consider performing noncontrast MRI to include diffusion-weighted images. Mandeep Falcon MD Carotid Artery Ultrasound 11/16/16 0000 Signed Impressions: Service Date/Time: Wednesday, November 16, 2016 16:47 - CONCLUSION: 1. Normal hemodynamic profile on the right. 2. Elevated peak systolic velocity in the common carotid artery without widening of velocity spectrum or elevated ICA velocity on the left side. This is suggestive to 50%% stenosis. Mandeep Falcon MD Brain MRI 11/16/16 Signed Impressions: Service Date/Time: Wednesday, November 16, 2016 18:01 - CONCLUSION: 1. No acute intracranial abnormality. 2. Chronic small vessel ischemic change. 3. Left maxillary sinus disease. Mandeep Toussaint Jr., MD PE at Discharge GENERAL: Not in distress. SKIN: Focused skin assessment warm/dry. HEAD: Atraumatic. Normocephalic. EYES: Pupils equal and round. EOMI. No scleral icterus. No injection or drainage. ENT: No nasal bleeding or discharge. Mucous membranes pink and moist. NECK: Trachea midline. No JVD. CARDIOVASCULAR: Regular rate and rhythm. No murmur appreciated. RESPIRATORY: No accessory muscle use. Clear to auscultation. Breath sounds equal bilaterally. GASTROINTESTINAL: Abdomen soft, non-tender, nondistended. MUSCULOSKELETAL: No obvious deformities. No clubbing. No cyanosis. No edema. NEUROLOGICAL: Awake and alert. No focal deficits. PSYCHIATRIC: Appropriate mood and affect; insight and judgment normal. Hospital Course This is a pleasant 86 y/o Male with Hypertension, non on any medicine, who complaint today of not feeling well, he felt lightheaded found in Emergency room with Accelerated Hypertension, Pt was initially seen by midlevel provider in triage and had the work up started. Pt returned from x ray and nephew stated that he had slurred speech as well as numbness in right arm and leg. Last normal was at 2:45pm. seen by Emergency medicine physician with numbness in his right arm and leg that was resolving, Speech also was improving, Pt did have a left facial droop and left facial numbness, Denies any fever, headache, visual changes, chest pain, sob, vomiting, abdominal pain. Pt is not on any medications and does not see doctor often. patient seen in emergency room, in the presence of biological lab technician doing his Carotid ultrasound he states he had Right arm and leg tingling sensation, numbness and slurred speech at this moment totally asymptomatic, full Stroke workup will be performed included Neurology specialist consult. 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 with Diagnosis of TIA recommended for discharge from Neurology standpoint, may consider PAF and may get Holter monitoring as outpatient, Hypertension management, Aspirin 81 mg daily, follow as outpatient with Neurology. by Doctor Diego Velásquez No signs of Atrial Fibrillation needs a PCP and Holter monitoring as outpatient. Assessment and Plan 1. 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 with Diagnosis of TIA recommended for discharge from Neurology standpoint, may consider PAF and may get Holter monitoring as outpatient, Hypertension management, Aspirin 81 mg daily, follow as outpatient with Neurology. by Doctor Diego Velásquez 2. Accelerated Hypertension, Permissive Hypertension, started medicines for Hypertension 3. Hyperlipidemia started on Pravastatin. 4. Non compliant patient discussed with his Son Mr. Beaulieu all questions answered to the best of my abilities the patient basically needs a Primary Care Physician to follow him as outpatient. DVT prophylaxis Lovenox. Code Status Full code. Discussed Condition With Patient, his Niece Miss Magy Martinez and his son Mr Beaulieu Discharge Planning Discharge home with outpatient Physical Therapy. Pt Condition on Discharge: Good Discharge Disposition: Discharge Home Discharge Time: <= 30 minutes Discharge Instructions DIET: Follow Instructions for: Heart Healthy Diet Activities you can perform: Regular-No Restrictions Galen Rich MD Nov 17, 2016 13:54 Galen Rich MD Nov 17, 2016 13:54
[2016-11-17] MEDS ORDERED: amLODIPine BESYLATE 5 MG TAB PO ONE (14:00)
[2016-11-17] MEDS ORDERED: PRAVASTATIN SOD 20 MG TAB PO ONE (15:00)
[2016-11-17 15:57] LABS: HEMOGLOBIN A1a 0.8 %; HEMOGLOBIN A1b 1.1 %; HEMOGLOBIN LA1C 1.7 %; HEMOGLOBIN P3 3.2 %
== END 2016-11-17 15:19 | disposition home or self-care (01) ==
LOC: NEPE 13:42 → NEDA 16:27 → NEPFCDU 21:33
PROVIDERS: ADMIT Internal Medicine; ATTEND Internal Medicine
DX: G45.9 Transient cerebral ischemic attack, unspecified (principal); I10 Essential (primary) hypertension; E78.5 Hyperlipidemia, unspecified; R42 Dizziness and giddiness; R47.81 Slurred speech; R20.0 Anesthesia of skin; Z86.73 Personal history of transient ischemic attack (TIA), and cerebral infarction without residual deficits; Z91.19 Patient's noncompliance with other medical treatment and regimen; I49.8 Other specified cardiac arrhythmias
CPT/HCPCS: 70450; 70544; 70551; 71020; 80048; 80061; 82550; 82607; 82746; 82948; 83036; 83735; 84439; 84443; 84484; 85025; 85610; 85730; 92610; 93005; 93306; 93880; 96125; 96374; 97162; 97166; 99285; G0378; G8987; G8988; G8989; G8996; G8997; G8998; J0360; J1650; J7030